=== PATIENT | male | born 1940 | race Caucasian/White ===

== ENCOUNTER → 2016-10-29 | Outpatient (CLI) | payer MEDICARE, OTHER | LOC: GMAB 10:36 | PROVIDERS: ATTEND Family Medicine | DX: I10 Essential (primary) hypertension (principal); E78.2 Mixed hyperlipidemia; E11.8 Type 2 diabetes mellitus with unspecified complications; Z79.4 Long term (current) use of insulin; Z12.5 Encounter for screening for malignant neoplasm of prostate | CPT/HCPCS: 84443; G0103 ==

== ENCOUNTER → 2017-10-29 | Outpatient (CLI) | payer MEDICARE, OTHER | LOC: GMAE 11:00 | PROVIDERS: ATTEND Family Medicine | DX: I10 Essential (primary) hypertension (principal) ==

== ENCOUNTER → 2017-11-04 | Outpatient (CLI) | payer OTHER | LOC: LAB.O 10:12 | PROVIDERS: ATTEND Internal Medicine Nephrology | DX: N18.4 Chronic kidney disease, stage 4 (severe) (principal) ==

== ENCOUNTER → 2018-03-18 | Outpatient (CLI) | payer OTHER | LOC: GMAE 09:52 | PROVIDERS: ATTEND Family Medicine | DX: N18.4 Chronic kidney disease, stage 4 (severe) (principal) ==

== ENCOUNTER → 2018-06-29 | Outpatient (CLI) | payer OTHER | LOC: GMAE 10:47 | PROVIDERS: ATTEND Family Medicine | DX: N18.4 Chronic kidney disease, stage 4 (severe) (principal) ==

== ENCOUNTER → 2018-09-29 | Outpatient (CLI) | payer OTHER | LOC: MRI 12:41 | PROVIDERS: ATTEND Family Medicine | DX: M17.12 Unilateral primary osteoarthritis, left knee (principal); M11.262 Other chondrocalcinosis, left knee; I70.90 Unspecified atherosclerosis ==

== ENCOUNTER → 2018-10-27 | Outpatient (CLI) | payer OTHER | LOC: GMAE 09:16 | PROVIDERS: ATTEND Family Medicine | DX: I12.9 Hypertensive chronic kidney disease with stage 1 through stage 4 chronic kidney disease, or unspecified chronic kidney disease (principal); N18.4 Chronic kidney disease, stage 4 (severe); E78.2 Mixed hyperlipidemia ==

== ENCOUNTER → 2019-04-27 | Outpatient (CLI) | payer OTHER | LOC: GMAE 09:45 | PROVIDERS: ATTEND Family Medicine | DX: N18.4 Chronic kidney disease, stage 4 (severe) (principal) ==

== ENCOUNTER 2019-08-12 08:04 | Emergency (ER) | payer OTHER ==
--- NOTE | 2019-08-12 08:46 | RAD ---
Study: Frontal and Lateral Radiographs of the Chest. Indication: progressive sob, hx chf and renal disease, anemia Comparison: June 22, 2015 Impression: Median sternotomy wires. Cardiac pacemaker. Cardiomegaly. Interstitial prominence more progressed compared to prior and may reflect interstitial edema, progressed scarring, or pneumonia. Changes are more prominent on the right. Follow-up to resolution recommended. Tiny pleural effusions suspected versus scarring at the lung bases. No pneumothorax. Degenerative changes of the spine noted. Electronically signed by: Hay Lutz MD 08/12/2019 8:45 AM CDT
--- NOTE | 2019-08-12 11:06 | ED.PDOC ---
History of Present Illness - General Chief Complaint: Respiratory Problem Stated Complaint: SOB,weakness Time Seen by Provider: 08/12/19 08:10 Source: patient Exam Limitations: no limitations - History of Present Illness Initial Comments: The patient is an 79-year-old male presented emergency room secondary to shortness of breath. After an extended discussion with the patient it appears he has had shortness of breath for quite some time and it is significantly worse with exertion. Not significantly worse with lying back. Symptoms started after he had a GI bleed several months ago. Since that time he has not been getting up and moving around very much. He has significantly deconditioned. Also at night he feels like he is having a difficult time getting his breath with his CPAP. He reports that it is been quite a few years since he has had a titration study and he thinks it may be malfunctioning. No fever. No productive cough. No real increased edema. No significant chest pain. He does have a pacemaker. He does have a history of CHF. He does have chronic renal insufficiency. He did require a transfusion was several months ago. No syncope or near syncope. He has seen a rock contractor and has had IV iron infusions. Systolic blood pressures here ranged from 100-115. Timing/Duration: unsure Severity: moderate Improving Factors: immobilization Worsening Factors: movement Associated Symptoms: malaise, shortness of breath, weakness Allergies/Adverse Reactions: Allergies Vancomycin Allergy (Verified 08/12/19 08:32) Morphine Adverse Reaction (Verified 06/24/19 12:47) Home Medications: Ambulatory Orders Acetaminophen [Tylenol] 500 mg PO BID 08/12/19 Apixaban [Eliquis] 5 mg PO BID 08/12/19 Aspirin [Aspirin Adult Low Dose] 81 mg PO BEDTIME 08/12/19 Carvedilol 6.25 mg PO BID 08/12/19 Diphenhydramine-Acetaminophen [Tylenol Pm Extra Strength 500-25 mg] 1 tab PO BEDTIME 08/12/19 Febuxostat [Uloric] 40 mg PO DAILY 08/12/19 Furosemide [Lasix] 40 mg PO .EVENING 08/12/19 Furosemide [Lasix] 80 mg PO DAILY 08/12/19 Insulin Degludec [Tresiba] 32 unit SC BID 08/12/19 Nitroglycerin 0.4 mg Tab [Nitrostat] 1 ea SL PRN 08/12/19 Potassium Chloride Microencaps [Klor-Con M20] 20 meq PO BID 08/12/19 Sacubitril-Valsartan [Entresto 24-26 mg] 1 tab PO BID 08/12/19 Simvastatin 40 mg PO BEDTIME 08/12/19 Sitagliptin Phosphate [Januvia] 100 mg PO BEDTIME 08/12/19 Review of Systems - Review of Systems Constitutional: States: malaise, weakness - Generalized EENTM: States: no symptoms reported Respiratory: States: short of breath Cardiology: States: no symptoms reported Gastrointestinal/Abdominal: States: no symptoms reported Genitourinary: States: no symptoms reported Musculoskeletal: States: no symptoms reported Skin: States: no symptoms reported Neurological: States: weakness Endocrine: States: no symptoms reported All other Systems: No Change from Baseline Past Medical History (General) - Patient Medical History Hx Stroke: No Hx Cardiac Disorders: Yes Hx Congestive Heart Failure: Yes Hx Pacemaker: Yes Hx Diabetes: Yes Hx Renal Disease: Yes Surgical History: coronary bypass surgery - Vaccination History Hx Influenza Vaccination: No Hx Pneumococcal Vaccination: - unknown - Social History Hx Tobacco Use: Yes Family Medical History - Family History Father Family History: Unknown Living Status: Physical Exam - Physical Exam General Appearance: Alert, Comfortable, No apparent distress Eye Exam: bilateral normal Ears, Nose, Throat: hearing grossly normal, normal ENT inspection Neck: full range of motion, supple Respiratory: lungs clear, normal breath sounds, no respiratory distress, no accessory muscle use Cardiovascular/Chest: normal peripheral pulses, other - Paced rhythm Peripheral Pulses: radial,right: 2+, radial,left: 2+ Gastrointestinal/Abdominal: non tender, soft Rectal Exam: deferred Back Exam: no CVA tenderness, no vertebral tenderness Extremity: normal range of motion, non-tender, normal inspection, normal capillary refill, pedal edema - +1 edema that is apparently old Neurologic: wire weaver II-XII nml as tested, alert, normal mood/affect, oriented x 3 Skin Exam: normal color Comments: Vital Signs - 24 hr 08/12/19 08/12/19 08/12/19 08:28 08:53 09:12 Temperature 97.1 F L Pulse Rate [ 78 78 70 Left Brachial] Respiratory 20 20 20 Rate Blood Pressure 121/70 113/57 [Left Arm] O2 Sat by Pulse 98 98 Oximetry 08/12/19 08/12/19 09:43 10:00 Temperature Pulse Rate [ 81 66 Left Brachial] Respiratory 20 Rate Blood Pressure 111/52 117/79 [Left Arm] O2 Sat by Pulse 97 98 Oximetry Progress - Progress Progress: 08/12/19 11:08 The patient is a 79-year-old male presented emergency room secondary to shortness of breath. This is likely multifactorial. Given the patient's history he should have his CPAP evaluated and possibly another titration study done as he may not be getting adequate ventilation at night. Additionally the patient's systolic blood pressures are low normal. This is likely reducing his ability to function. I am recommending that he cut his Coreg, carvedilol in half twice daily for the next week or 2. Additionally I do want him to hold his Lasix tomorrow. He does need to maintain a blood pressure and heart rate diary to take in to Dr. Martinez on Thursday. Other studies appear to be baseline for the patient at this time. He does have significant deconditioning and may yet benefit from physical therapy. No evidence of hypoxia. Lung ruth are clear to auscultation. No evidence of current respiratory distress. ER warnings are given. [email or web address] raza [phone] - Results/Orders Results/Orders: 08/12/19 08:30 EKG STAT ventricularly paced rhythm at 70 bpm. No previous EKG for comparison. Chest x-ray shows mild cardiomegaly with possibly some very small pleural effusions. Possible right hilar increased interstitial changes. 08/12/19 09:37 Vital Signs-Tilt PRN negative. Laboratory Results - last 24 hr 08/12/19 08/12/19 08/12/19 08:45 08:45 08:45 WBC 6.9 RBC 4.37 L Hgb 11.5 L Hct 37.1 L MCV 84.8 MCH 26.2 L MCHC 30.9 L RDW 19.4 H Plt Count 192 MPV 8.9 Absolute Neuts (auto) 5.50 Absolute Lymphs (auto) 0.30 L Absolute Monos (auto) 0.90 H Absolute Eos (auto) 0.10 Absolute Basos (auto) 0.10 Neutrophils % 78.9 H Lymphocytes % 4.8 L Monocytes % 13.3 H Eosinophils % 2.1 Basophils % 0.9 Normal RBC Morphology Stain quality accept PT 11.8 H INR 1.19 H PTT (SP) 28.6 Sodium 139 Potassium 4.4 Chloride 107 Carbon Dioxide 24 Anion Gap 12.4 BUN 54 H Creatinine 2.54 H BUN/Creatinine Ratio 21.3 H Random Glucose 177 H Serum Osmolality 296.7 H Calcium 9.5 Magnesium 2.4 Total Bilirubin 0.9 AST 17 ALT 12 Alkaline Phosphatase 75 Creatine Kinase 68 CK-MB (CK-2) 2.4 CK-MB (CK-2) % Not Reportable Troponin I 0.03 B-Natriuretic Peptide 847.0 H* Serum Total Protein 7.3 Albumin 3.8 Globulin 3.5 Albumin/Globulin Ratio 1.1 TSH 4.68 Urine Color Urine Appearance Urine pH Ur Specific Shickley Urine Protein Urine Glucose (UA) Urine Ketones Urine Blood Urine Nitrite Urine Bilirubin Urine Urobilinogen Ur Leukocyte Esterase Urine RBC Urine WBC Ur Epithelial Cells Urine Bacteria 08/12/19 09:29 WBC RBC Hgb Hct MCV MCH MCHC RDW Plt Count MPV Absolute Neuts (auto) Absolute Lymphs (auto) Absolute Monos (auto) Absolute Eos (auto) Absolute Basos (auto) Neutrophils % Lymphocytes % Monocytes % Eosinophils % Basophils % Normal RBC Morphology PT INR PTT (SP) Sodium Potassium Chloride Carbon Dioxide Anion Gap BUN Creatinine BUN/Creatinine Ratio Random Glucose Serum Osmolality Calcium Magnesium Total Bilirubin AST ALT Alkaline Phosphatase Creatine Kinase CK-MB (CK-2) CK-MB (CK-2) % Troponin I B-Natriuretic Peptide Serum Total Protein Albumin Globulin Albumin/Globulin Ratio TSH Urine Color Yellow Urine Appearance Clear Urine pH 5.5 Ur Specific Shickley 1.025 Urine Protein Negative Urine Glucose (UA) Negative Urine Ketones Negative Urine Blood Trace-intact H Urine Nitrite Negative Urine Bilirubin Negative Urine Urobilinogen 0.2 Ur Leukocyte Esterase Negative Urine RBC 0-1 Urine WBC 0 Ur Epithelial Cells 0 Urine Bacteria 0 Departure - Departure Clinical Impression: Physical deconditioning, Obstructive sleep apnea CHF (congestive heart failure) Qualifiers: Heart failure type: combined systolic and diastolic Heart failure chronicity: chronic Qualified Code(s): I50.42 - Chronic combined systolic (congestive) and diastolic (congestive) heart failure Disposition: Discharge to Home or Self Care Condition: Fair Departure Forms: ED Discharge - Pt. Copy, Patient Portal Self Enrollment Diet: low salt diet Activity: increase activity as tolerated Referrals: MICHELET MARTINEZ MD [Primary Care Provider] - 1-2 Days Home Medications: Ambulatory Orders Acetaminophen [Tylenol] 500 mg PO BID 08/12/19 Apixaban [Eliquis] 5 mg PO BID 08/12/19 Aspirin [Aspirin Adult Low Dose] 81 mg PO BEDTIME 08/12/19 Carvedilol 6.25 mg PO BID 08/12/19 Diphenhydramine-Acetaminophen [Tylenol Pm Extra Strength 500-25 mg] 1 tab PO BEDTIME 08/12/19 Febuxostat [Uloric] 40 mg PO DAILY 08/12/19 Furosemide [Lasix] 40 mg PO .EVENING 08/12/19 Furosemide [Lasix] 80 mg PO DAILY 08/12/19 Insulin Degludec [Tresiba] 32 unit SC BID 08/12/19 Nitroglycerin 0.4 mg Tab [Nitrostat] 1 ea SL PRN 08/12/19 Potassium Chloride Microencaps [Klor-Con M20] 20 meq PO BID 08/12/19 Sacubitril-Valsartan [Entresto 24-26 mg] 1 tab PO BID 08/12/19 Simvastatin 40 mg PO BEDTIME 08/12/19 Sitagliptin Phosphate [Januvia] 100 mg PO BEDTIME 08/12/19 Additional Instructions: The patient is a 79-year-old male presented emergency room secondary to shortness of breath. This is likely multifactorial. Given the patient's history he should have his CPAP evaluated and possibly another titration study done as he may not be getting adequate ventilation at night. Additionally the patient's systolic blood pressures are low normal. This is likely reducing his ability to function. I am recommending that he cut his Coreg, carvedilol in half twice daily for the next week or 2. Additionally I do want him to hold his Lasix tomorrow. He does need to maintain a blood pressure and heart rate diary to take in to Dr. Martinez on Thursday. Other studies appear to be baseline for the patient at this time. He does have significant deconditioning and may yet benefit from physical therapy. No evidence of hypoxia. Lung ruth are kimberly ar to auscultation. No evidence of current respiratory distress. ER warnings are given.
[2019-08-12 11:31] VITALS: BP 118/70; TEMP 97.5; O2SAT 96
== END 2019-08-12 11:28 | disposition home or self-care (01) ==
LOC: ER 08:04
DX: R06.02 Shortness of breath (principal); I50.42 Chronic combined systolic (congestive) and diastolic (congestive) heart failure; Z72.3 Lack of physical exercise; G47.33 Obstructive sleep apnea (adult) (pediatric); I51.7 Cardiomegaly; E11.9 Type 2 diabetes mellitus without complications; Z87.891 Personal history of nicotine dependence; Z79.82 Long term (current) use of aspirin; Z95.0 Presence of cardiac pacemaker; Z79.4 Long term (current) use of insulin; Z79.899 Other long term (current) drug therapy

== ENCOUNTER → 2019-08-15 | Outpatient (CLI) | payer OTHER | LOC: GMAE 11:31 | PROVIDERS: ATTEND Family Medicine | DX: D63.1 Anemia in chronic kidney disease (principal) ==

== ENCOUNTER → 2019-08-23 | Outpatient (CLI) | payer OTHER ==
--- NOTE | 2019-08-23 16:46 | US ---
EXAM DESCRIPTION: Venous,Lower Extremity LT (accession [id number]), Venous,Lower Extremity RT (accession [id number]): Ultrasound. CLINICAL HISTORY: LEG PAIN. Bilateral. COMPARISON: None Available. TECHNIQUE: Two -dimensional and doppler sonographic evaluation of the deep venous system of the bilateral lower extremities. FINDINGS: Doppler evaluation shows normal color flow and normal phasicity and augmentation of the bilateral common femoral veins, junctions with the bilateral proximal saphenous veins, femoral veins, popliteal veins, greater saphenous veins, peroneal and posterior tibial veins. These veins showed normal occlusion with transducer pressure. Two-dimensional survey showed no echogenic clot within these veins. IMPRESSION: Duplex ultrasound evaluation of the bilateral lower extremity deep venous systems showing no evidence of thrombosis. Electronically signed by: Rubio Tilley MD 08/23/2019 4:45 PM CDT
--- NOTE | 2019-08-23 16:46 | US ---
EXAM DESCRIPTION: Venous,Lower Extremity LT (accession [id number]), Venous,Lower Extremity RT (accession [id number]): Ultrasound. CLINICAL HISTORY: LEG PAIN. Bilateral. COMPARISON: None Available. TECHNIQUE: Two -dimensional and doppler sonographic evaluation of the deep venous system of the bilateral lower extremities. FINDINGS: Doppler evaluation shows normal color flow and normal phasicity and augmentation of the bilateral common femoral veins, junctions with the bilateral proximal saphenous veins, femoral veins, popliteal veins, greater saphenous veins, peroneal and posterior tibial veins. These veins showed normal occlusion with transducer pressure. Two-dimensional survey showed no echogenic clot within these veins. IMPRESSION: Duplex ultrasound evaluation of the bilateral lower extremity deep venous systems showing no evidence of thrombosis. Electronically signed by: Rubio Tilley MD 08/23/2019 4:45 PM CDT
--- NOTE | 2019-08-24 08:01 | RAD ---
EXAM DESCRIPTION: Chest,2 Views CLINICAL HISTORY: 79 years Male, ORTHOPNEA COMPARISON: 08/12/2019 Findings: One view(s)/radiograph(s) Left chest wall pacemaker. Median sternotomy. Cardiomegaly. Improved pulmonary vascular congestion. Tiny bilateral pleural effusions. No pneumothorax. Improving interstitial prominence. No focal consolidation. No acute osseous abnormality. IMPRESSION: Improving CHF. Electronically signed by: Minor Castro MD 08/24/2019 8:00 AM CDT
--- NOTE | 2019-08-24 09:25 | US ---
EXAM DESCRIPTION: Extremity,Lower Geoffrey Arteries: Ultrasound. CLINICAL HISTORY: PN IN LEGS COMPARISON: None. TECHNIQUE: Doppler evaluation of the bilateral lower extremity arterial flow waveforms and velocities. FINDINGS: Arterial waveforms in the right lower extremity are mostly monophasic with biphasic waveforms in the distal SFA and popliteal artery.. Arterial waveforms in the left lower extremity are biphasic in the left femoral artery, popliteal artery and dorsalis pedis artery. Monophasic in the left common femoral artery, left peroneal artery and left posterior tibial artery.. Comments: Decreased velocities bilaterally but more on the right extremity. IMPRESSION: Bilaterally significant atherosclerotic occlusive disease, more severe in the right lower extremity. If these findings are discordant with clinical findings, consider bilateral lower extremity CTA runoff. Electronically signed by: Rubio Tilley MD 08/24/2019 9:23 AM CDT
== END ==
LOC: US 14:00
PROVIDERS: ATTEND Family Medicine
DX: I50.9 Heart failure, unspecified (principal); I70.203 Unspecified atherosclerosis of native arteries of extremities, bilateral legs; M79.662 Pain in left lower leg; M79.661 Pain in right lower leg

== ENCOUNTER 2019-08-24 14:49 | Emergency (ER) | payer OTHER ==
--- NOTE | 2019-08-24 14:57 | ED.PDOC ---
History of Present Illness - General Time Seen by Provider: 08/24/19 14:54 Additional Information: This is an 79-year-old male patient, with hypertension diabetes coronary disease with multiple stents CABG cardiac pacemaker history of renal disease without dialysis, patient presents to the ER because he went to his primary care physician this morning they noted that his blood pressure was a little low. Then he went home he took a nap, and when he woke up he felt very weak so he felt like his blood pressure dropped even lower, patient denies any chest pain denies any abdominal pain admits chills but denies fever Patient is a former smoker and former drinker. Also stated that he feels a lot better, but when he woke up from the nap he said that he felt like he could not move and that he was very weak Patient denies any recent any medications also he stated that his renal or road consultant try to speak with his primary care physician for review patient's current medication She did not fall and did not lose consciousness and did not passed out This patient recently had a echocardiogram and his last ejection fraction was about 5% - History of Present Illness Improving Factors: rest Worsening Factors: nothing Associated Symptoms: denies symptoms Allergies/Adverse Reactions: Allergies Vancomycin Allergy (Verified 08/24/19 15:14) Morphine Adverse Reaction (Verified 08/24/19 15:14) Home Medications: Ambulatory Orders Acetaminophen [Tylenol] 500 mg PO BID 08/12/19 Apixaban [Eliquis] 5 mg PO BID 08/12/19 Aspirin [Aspirin Adult Low Dose] 81 mg PO BEDTIME 08/12/19 Carvedilol 6.25 mg PO BID 08/12/19 Diphenhydramine-Acetaminophen [Tylenol Pm Extra Strength 500-25 mg] 1 tab PO BEDTIME 08/12/19 Febuxostat [Uloric] 40 mg PO DAILY 08/12/19 Furosemide [Lasix] 40 mg PO .EVENING 08/12/19 Furosemide [Lasix] 80 mg PO DAILY 08/12/19 Insulin Degludec [Tresiba] 32 unit SC BID 08/12/19 Nitroglycerin 0.4 mg Tab [Nitrostat] 1 ea SL PRN 08/12/19 Potassium Chloride Microencaps [Klor-Con M20] 20 meq PO BID 08/12/19 Sacubitril-Valsartan [Entresto 24-26 mg] 1 tab PO BID 08/12/19 Simvastatin 40 mg PO BEDTIME 08/12/19 Sitagliptin Phosphate [Januvia] 100 mg PO BEDTIME 08/12/19 Review of Systems - Review of Systems Constitutional: States: no symptoms reported EENTM: States: no symptoms reported Respiratory: States: no symptoms reported Cardiology: States: no symptoms reported Genitourinary: States: no symptoms reported Musculoskeletal: States: no symptoms reported Skin: States: no symptoms reported Neurological: States: no symptoms reported Endocrine: States: no symptoms reported Hematologic/Lymphatic: States: no symptoms reported Past Medical History (General) - Patient Medical History Hx Stroke: No Hx Cardiac Disorders: Yes Hx Congestive Heart Failure: Yes Hx Pacemaker: Yes Hx Diabetes: Yes Hx Renal Disease: Yes - Vaccination History Hx Influenza Vaccination: No Hx Pneumococcal Vaccination: - unknown - Social History Hx Tobacco Use: Yes Family Medical History - Family History Father Family History: Unknown Living Status: Physical Exam - Physical Exam General Appearance: Alert, Well Developed, Well Groomed, Well Hydrated, Well Nourished Eye Exam: bilateral normal Ears, Nose, Throat: hearing grossly normal, normal ENT inspection, normal pharynx Neck: non-tender Respiratory: chest non-tender, lungs clear, normal breath sounds, no respiratory distress, no accessory muscle use Cardiovascular/Chest: normal peripheral pulses, regular rate, rhythm, no edema, no gallop, no JVD, no murmur Gastrointestinal/Abdominal: normal bowel sounds, non tender, soft, no organomegaly, no pulsatile mass Extremity: normal range of motion Skin Exam: normal color Lymphatic: no adenopathy Progress - Progress Progress: 08/24/19 15:30 This is an 79-year-old male patient presents to the ER because he went to his doctor today, they noted that his blood pressure was still low he went home fell asleep and then woke up very weak and he thought that he probably his blood pressure dropped precipitously, patient stated that he felt like generalized weakness no focal weakness no slurred speech no neurological deficit. By the time patient arrived in the ER he said that he felt a lot better, patient does have a long history of coronary artery disease, with congestive heart failure with a low ejection fraction, patient denies any fever chills chest pain shortness of breath at the moment patient is able to speak in long and complete sentences Patient chest x-ray showed cardiomegaly with some vascular congestion, pressure in the ER has been good, and patient does not appear in any distress 08/24/19 15:50 Chest,1 View CLINICAL HISTORY: shortness of breath COMPARISON: August 23, 2019 IMPRESSION: Single AP portable upright view of the chest shows enlargement of the cardiac silhouette without pulmonary vascular congestion similar to previous. Postsurgical changes from sternotomy. Multilead left subclavian cardiac pacer defibrillator is stable. Lungs are mildly hypoaerated without acute appearing infiltrate or consolidation. No obvious pleural effusion or pneumothorax is seenTroponins were 0.03 there is evidence of metabolic acidosis with a CO2 of 18 and elevated BUN and creatinine, I will discuss these findings with the patient's road consultant, I was able to speak with the patient, patient does not be in any distress he is adamant that he wants to go home but his does not want him to go home because she feels like he is very weak short of breath and unable to stand. Patient said that he is able to stand and that he does not want to stay in the hospital explained to the patient and the that given patient's ejection fracture is suspected for him to be short of breath even with minimal exertion. I was able to speak with patient's road consultant, and patient's kidney function is stable for this patient.Patient has an appointment with his otr hazmat company driver on Thursday and the recommendation from the road consultant was for the otr hazmat company driver to cut down on patient diuretic I suspect the patient's symptoms can be explained by orthostatic hypotension since patient was lying down sleeping and when he woke up and stood up then he became dizzy and he felt like his blood pressure came down rapidly. While the patient has been in the ER has been stable with no complaints and with normal blood pressureCall otr hazmat company driver to set up patient for an appointment as soon as possible Instructions given to return to the ER immediately with any chest pressure, nausea, vomiting, shortness of breath dizziness sensation of fainting activities or confusion or any other concern - EKG/XRAY/CT Comments: Pacemaker rhythm Departure - Departure Clinical Impression: Orthostatic hypotension Disposition: Discharge to Home or Self Care Instructions: Orthostatic Hypotension Referrals: MICHELET MONTALVO MD [Primary Care Provider] - 1-2 Weeks Home Medications: Ambulatory Orders Acetaminophen [Tylenol] 500 mg PO BID 08/12/19 Apixaban [Eliquis] 5 mg PO BID 08/12/19 Aspirin [Aspirin Adult Low Dose] 81 mg PO BEDTIME 08/12/19 Carvedilol 6.25 mg PO BID 08/12/19 Diphenhydramine-Acetaminophen [Tylenol Pm Extra Strength 500-25 mg] 1 tab PO BEDTIME 08/12/19 Febuxostat [Uloric] 40 mg PO DAILY 08/12/19 Furosemide [Lasix] 40 mg PO .EVENING 08/12/19 Furosemide [Lasix] 80 mg PO DAILY 08/12/19 Insulin Degludec [Tresiba] 32 unit SC BID 08/12/19 Nitroglycerin 0.4 mg Tab [Nitrostat] 1 ea SL PRN 08/12/19 Potassium Chloride Microencaps [Klor-Con M20] 20 meq PO BID 08/12/19 Sacubitril-Valsartan [Entresto 24-26 mg] 1 tab PO BID 08/12/19 Simvastatin 40 mg PO BEDTIME 08/12/19 Sitagliptin Phosphate [Januvia] 100 mg PO BEDTIME 08/12/19 Additional Instructions: return to the ER immediately with any chest pressure, nausea, vomiting, shortness of breath dizziness sensation of fainting activities or confusion or any other concern
--- NOTE | 2019-08-24 15:32 | RAD ---
EXAM DESCRIPTION: Chest,1 View CLINICAL HISTORY: shortness of breath COMPARISON: August 23, 2019 IMPRESSION: Single AP portable upright view of the chest shows enlargement of the cardiac silhouette without pulmonary vascular congestion similar to previous. Postsurgical changes from sternotomy. Multilead left subclavian cardiac pacer defibrillator is stable. Lungs are mildly hypoaerated without acute appearing infiltrate or consolidation. No obvious pleural effusion or pneumothorax is seen. Electronically signed by: Yunior Natarajan MD 08/24/2019 3:30 PM CDT
[2019-08-24 17:01] VITALS: TEMP 98.2; O2SAT 95
[2019-08-24 17:04] VITALS: BP 122/65
== END 2019-08-24 16:50 | disposition home or self-care (01) ==
LOC: ER 14:49
DX: I95.1 Orthostatic hypotension (principal); I50.9 Heart failure, unspecified; I11.0 Hypertensive heart disease with heart failure; I25.10 Atherosclerotic heart disease of native coronary artery without angina pectoris; Z95.5 Presence of coronary angioplasty implant and graft; Z95.1 Presence of aortocoronary bypass graft; Z95.0 Presence of cardiac pacemaker; Z79.01 Long term (current) use of anticoagulants; Z87.891 Personal history of nicotine dependence; Z79.82 Long term (current) use of aspirin

== ENCOUNTER → 2019-09-06 | Outpatient (CLI) | payer MEDICARE | LOC: GMAE 15:30 | PROVIDERS: ATTEND Family Medicine | DX: D63.1 Anemia in chronic kidney disease (principal) ==